=== PATIENT | male | born 1940 | race African-American/Black ===

== ENCOUNTER 2021-04-10 07:01 | Inpatient (IN) | payer OTHER ==
[~2021-04-10] VITALS: Ht 175.3 cm; Wt 85.7 kg
[2021-04-10] VITALS (7 sets, daily range): BP systolic 93–123; BP diastolic 54–77
--- NOTE | ~2021-04-10 | EMS ---
[address] [address] EMS Patient Care Report Name: CHRISTIAN JAMES Room #: 353-P ADM IN M.R.#: [id number] Admission: 04/10/21 Attend Phys: Vitaliy Song MD Discharge: Date of : 40 Report #: [id number] THIS REPORT FOR: //name// Report Transmitted: 04/12/2021 08:21 EMS Care Summary [place], [place]/[facility] Incident [id number] @ 04/10/2021 06:22 Incident Location [address] [place], [place] [id number] Patient CHRISTIAN JAMES Male, 80 Years 1940 Patient Address [address] [place], [place] [phone] Patient History Hypertension (HTN),Prostate Cancer, Patient Allergies No known allergies, Patient Medications Unknown, Chief Complaint COUGH FROM COVID Disposition Transported No Lights/[place] Dispatch Reason Breathing Problem Transported To [facility] Narrative UPON ARRIVAL TO SCENE, PT FOUND UPSTAIRS IN HIS BEDROOM ALERT AND ORIENTED. PT WAS GATHERING HIS BELONGINGS AND PUTTING CLOTHES ON WITHOUT DIFFICULTY, PREPARING FOR TRIP TO ER. PT STATED HE WAS VACCINATED FOR COVID IN NOVEMBER, STARTED HAVING PERSISTENT COUGH A COUPLE DAYS AGO, AND THEN TESTED POSITIVE FOR [address] [address] EMS Patient Care Report Name: CHRISTIAN JAMES JR Room #: 353-P [facility] IN [facility]#: [id number] Admission: 04/10/21 Attend Phys: Vitaliy Song MD Discharge: Date of : 40 Report #: [id number] COVID. PT HAS BEEN AT HOME FOR A FEW DAYS SINCE TESTING POSITIVE, AND STATES HIS COUGH IS GETTING WORSE AND WANTS TO GO TO ER. PT HAD NO COMPLAINTS OF PAIN OR ACHES AND DID NOT FEEL SOB. PT WAS ASSISTED TO STRETCHER WITH BELONGINGS AND TAKEN TO AMBULANCE. VITALS MONITORED EN ROUTE, PT PLACED ON NC DUE TO HYPOXIA BUT STILL STATED HE DID NOT FEEL SOB. UPON ARRIVAL PT TAKEN TO ER AND CARE LEFT WITH STAFF NURSE. Initial Vitals @06:47P: 86,R: 16,BP: 102/67,Pain: 0/10,GCS: 15,CO: 4,SpO2: 93,Revised Trauma: 12, @06:40P: 90,R: 16,BP: 103/63,Pain: 0/10,GCS: 15,Temp: 102.9F,CO: 3,SpO2: 89,Revised Trauma: 12, Assessments @06:29MENTAL:Person Oriented,Time Oriented,Place Oriented,Event Oriented,SKIN:Hot,HEENT:Head/Face: No Abnormalities,Neck/Airway: No Abnormalities,LUNG SOUNDS:General: No Abnormalities,ABDOMEN:General: No Abnormalities,PELVIS//GI:EXTREMITIES:Left Arm: No Abnormalities,Right Arm: No Abnormalities,Left Leg: No Abnormalities,Right Leg: No Abnormalities,PULSE:NEURO:No Abnormalities, Impression COVID-19 - Confirmed by testing Procedures @06:29ALS AssessmentResponse: UnchangedSucceeded@06:41Oxygen FlowRate: 3 Device: Nasal Cannula (NC) Response: ImprovedSucceeded Timeline 06:20,Call Received 06:20,Dispatch Notified 06:22,Dispatched 06:23,En Route 06:27,On Scene 06:29,At Patient 06:29,ALS Assessment,Response: UnchangedSucceeded, 06:39,Depart Scene 06:40,BP: 103/63 M,PULSE: 90,RR: 16 R,SPO2: 89 Ox,ETCO2: ,BG: ,PAIN: 0,GCS: 15, 06:41,Oxygen FlowRate: 3 Device: Nasal Cannula (NC) Response: ImprovedSucceeded, 06:47,BP: 102/67 M,PULSE: 86,RR: 16 R,SPO2: 93 Ox,ETCO2: ,BG: ,PAIN: 0,GCS: 15, 06:57,At Destination 07:10,Call Closed Disclaimer v1.1 Copyright 2020 [employer] This EMS Care Summary contains data elements [place] [address] EMS Patient Care Report Name: CHRISTIAN JAMES Room #: 353-P [facility] IN M.R.#: [id number] Admission: 04/10/21 Attend Phys: Vitaliy oSng MD Discharge: Date of : 40 Report #: [id number] (which may be displayed differently). It is designed to provide pertinent information for the following purposes: continuity of care, clinical quality, and state data reporting. The complete legal record is available to ED staff and administrators of the receiving hospital in [facility]'s Patient Tracker. All data is provided "as is."
--- NOTE | ~2021-04-10 | EMS ---
[address] [address] EMS Patient Care Report Name: CHRISTIAN JAMES Room #: 353-P ADM IN M.R.#: [id number] Admission: 04/10/21 Attend Phys: Vitaliy Song MD Discharge: Date of : 40 Report #: [id number] THIS REPORT FOR: //name// Report Transmitted: 04/12/2021 10:05 EMS Care Summary [place], [place]/[facility] Incident [id number] @ 04/10/2021 06:22 Incident Location [address] [place], [place] [phone] Patient CHRISTIAN JAMES Male, 80 Years 1940 Patient Address [address] [place], [place] [phone] Patient History Hypertension (HTN),Prostate Cancer, Patient Allergies No known allergies, Patient Medications Unknown, Chief Complaint COUGH FROM COVID Disposition Transported No Lights/[place] Dispatch Reason Breathing Problem Transported To [facility] Narrative UPON ARRIVAL TO SCENE, PT FOUND UPSTAIRS IN HIS BEDROOM ALERT AND ORIENTED. PT WAS GATHERING HIS BELONGINGS AND PUTTING CLOTHES ON WITHOUT DIFFICULTY, PREPARING FOR TRIP TO ER. PT STATED HE WAS VACCINATED FOR COVID IN NOVEMBER, STARTED HAVING PERSISTENT COUGH A COUPLE DAYS AGO, AND THEN TESTED POSITIVE FOR [address] [address] EMS Patient Care Report Name: CHRISTIAN JAMES JR Room #: 353-P [facility]#: [id number] Admission: 04/10/21 Attend Phys: Vitaliy Song MD Discharge: Date of : 40 Report #: [id number] COVID. PT HAS BEEN AT HOME FOR A FEW DAYS SINCE TESTING POSITIVE, AND STATES HIS COUGH IS GETTING WORSE AND WANTS TO GO TO ER. PT HAD NO COMPLAINTS OF PAIN OR ACHES AND DID NOT FEEL SOB. PT WAS ASSISTED TO STRETCHER WITH BELONGINGS AND TAKEN TO AMBULANCE. VITALS MONITORED EN ROUTE, PT PLACED ON NC DUE TO HYPOXIA BUT STILL STATED HE DID NOT FEEL SOB. UPON ARRIVAL PT TAKEN TO ER AND CARE LEFT WITH STAFF NURSE. Initial Vitals @06:47P: 86,R: 16,BP: 102/67,Pain: 0/10,GCS: 15,CO: 4,SpO2: 93,Revised Trauma: 12, @06:40P: 90,R: 16,BP: 103/63,Pain: 0/10,GCS: 15,Temp: 102.9F,CO: 3,SpO2: 89,Revised Trauma: 12, Assessments @06:29MENTAL:Person Oriented,Time Oriented,Place Oriented,Event Oriented,SKIN:Hot,HEENT:Head/Face: No Abnormalities,Neck/Airway: No Abnormalities,LUNG SOUNDS:General: No Abnormalities,ABDOMEN:General: No Abnormalities,PELVIS//GI:EXTREMITIES:Left Arm: No Abnormalities,Right Arm: No Abnormalities,Left Leg: No Abnormalities,Right Leg: No Abnormalities,PULSE:NEURO:No Abnormalities, Impression COVID-19 - Confirmed by testing Procedures @06:29ALS AssessmentResponse: UnchangedSucceeded@06:41Oxygen FlowRate: 3 Device: Nasal Cannula (NC) Response: ImprovedSucceeded Timeline 06:20,Call Received 06:20,Dispatch Notified 06:22,Dispatched 06:23,En Route 06:27,On Scene 06:29,At Patient 06:29,ALS Assessment,Response: UnchangedSucceeded, 06:39,Depart Scene 06:40,BP: 103/63 M,PULSE: 90,RR: 16 R,SPO2: 89 Ox,ETCO2: ,BG: ,PAIN: 0,GCS: 15, 06:41,Oxygen FlowRate: 3 Device: Nasal Cannula (NC) Response: ImprovedSucceeded, 06:47,BP: 102/67 M,PULSE: 86,RR: 16 R,SPO2: 93 Ox,ETCO2: ,BG: ,PAIN: 0,GCS: 15, 06:57,At Destination 07:10,Call Closed Disclaimer v1.1 Copyright 2020 [employer] This EMS Care Summary contains data elements [place] [address] EMS Patient Care Report Name: CHRISTIAN JAMES Room #: 353-P [facility] IN M.R.#: [id number] Admission: 04/10/21 Attend Phys: Vitaliy Song MD Discharge: Date of : 40 Report #: [id number] (which may be displayed differently). It is designed to provide pertinent information for the following purposes: continuity of care, clinical quality, and state data reporting. The complete legal record is available to ED staff and administrators of the receiving hospital in [facility]'s Patient Tracker. All data is provided "as is."
--- NOTE | 2021-04-10 07:30 | NUR ---
ED PROVIDER HAD TAKEN PT OFF 3L NC, HOWEVER OXYGEN SATURATION HAD DROPPED BACK IN THE UPPER 80'S ON RA. PT PLACED BACK ON 3L NC AT THIS TIME. ED PROVIDER NOTIFIED
[2021-04-10 07:31] LABS: ABSOLUTE NEUTROPHILS 6.1 thou/uL (1.4-8.2); BASOPHILS 0.8 % (0.0-2.0); HEMATOCRIT 34.7 % (42.0-52.0); HEMOGLOBIN 11.9 gm/dL (14.0-18.0); LYMPHOCYTES 12.6 % (24.0-44.0); MCHC 34.3 g/dL (28.0-37.0); MCV 87.6 fL (80.0-100.0); MONOCYTES 3.7 % (1.0-8.0); PLATELET COUNT 135 thou/uL (150-400); POLYS 82.9 % (36.0-66.0); RBC 3.96 mil/uL (4.50-6.00); RDW 14.6 % (10.5-14.5); WBC 7.4 thou/uL (4.0-11.0)
[2021-04-10 08:11] LABS: CALCIUM 8.2 mg/dL (8.5-10.1); CREATININE 1.5 mg/dL (0.7-1.3); POTASSIUM 3.5 mmol/L (3.5-5.1)
[2021-04-10 08:17] LABS: ALBUMIN 2.8 g/dL (3.4-5.0); TOTAL BILIRUBIN 0.9 mg/dL (0.2-1.0); TOTAL PROTEIN 6.9 g/dL (6.4-8.2)
[2021-04-10] MEDS ORDERED: CASODEX 50 MG T50 MG PO (13:26)
[2021-04-10] MEDS ORDERED: K-DUR 20 MEQ T20 MEQ PO (13:26)
[2021-04-10] MEDS ORDERED: TRIAMTERENE/HCT1 CA1 PO (13:27)
--- NOTE | 2021-04-10 17:05 | NUR ---
ADMISSION NOTE: PT ADMITTED TO 353, ALERT AND ORIENTED X4, FORGETFUL TIMES. DENIES CHEST PAIN, NAUSEA AND VOMITTING. COMPOSITE SCIENCE TEACHER PLACED ON PT, SR. ASSESSMENT AND ADMISSION COMPLETED. OXYGEN TITRATED DOWN TO 1L. UP BATHROOM WITH 1 ASSIST. FALL PRECAUTIONS IN PLACE. MED REC. COMPLETED. PT DAUGHTER CALLED AND UPDATED ABOUT CARE.
[2021-04-11 00:21] VITALS: BP 106/71
[2021-04-11 04:10] VITALS: BP 104/68
[2021-04-11 05:35] LABS: ABSOLUTE NEUTROPHILS 5.7 thou/uL (1.4-8.2); BASOPHILS 0.1 % (0.0-2.0); HEMATOCRIT 31.3 % (42.0-52.0); HEMOGLOBIN 10.9 gm/dL (14.0-18.0); LYMPHOCYTES 10.2 % (24.0-44.0); MCH 30.4 pg (26.0-34.0); MCHC 34.9 g/dL (28.0-37.0); MCV 87.2 fL (80.0-100.0); MONOCYTES 5.6 % (1.0-8.0); PLATELET COUNT 140 thou/uL (150-400); POLYS 84.1 % (36.0-66.0); RBC 3.59 mil/uL (4.50-6.00); RDW 14.5 % (10.5-14.5); WBC 6.8 thou/uL (4.0-11.0)
[2021-04-11 05:42] LABS: PROTIME 10.9 Seconds (10.5-12.1)
[2021-04-11 05:57] LABS: ALBUMIN 2.2 g/dL (3.4-5.0); CALCIUM 7.6 mg/dL (8.5-10.1); POTASSIUM 3.8 mmol/L (3.5-5.1); TOTAL BILIRUBIN 0.5 mg/dL (0.2-1.0)
[2021-04-11 07:47] VITALS: BP 91/56
[2021-04-11 11:18] VITALS: BP 112/74
--- NOTE | 2021-04-11 13:37 | NUR ---
ASSUMED PT CARE THIS AM. PT A&O X4. DENIES ANY CHEST OR OTHER PAIN. PT USES URINAL. ATTEMPTED TO WEAN PT FROM 1L WITH DESAT DURING PHONE CALL, REMAINS ON 1L NC. ENHANCED PRECAUTIONS IN PLACE. FALL PRECAUTIONS IN PLACE. CONTINUE TO MONITOR.
[2021-04-11 16:19] VITALS: BP 110/76
[2021-04-11 19:55] VITALS: BP 127/73
[2021-04-12 03:56] VITALS: BP 99/69
[2021-04-12 07:08] LABS: ABSOLUTE NEUTROPHILS 5.9 thou/uL (1.4-8.2); BASOPHILS 0.1 % (0.0-2.0); HEMATOCRIT 31.7 % (42.0-52.0); HEMOGLOBIN 10.7 gm/dL (14.0-18.0); LYMPHOCYTES 9.9 % (24.0-44.0); MCH 29.8 pg (26.0-34.0); MCHC 33.8 g/dL (28.0-37.0); MONOCYTES 6.8 % (1.0-8.0); PLATELET COUNT 206 thou/uL (150-400); POLYS 83.2 % (36.0-66.0); RDW 14.4 % (10.5-14.5); WBC 7.1 thou/uL (4.0-11.0)
[2021-04-12 07:09] LABS: ALBUMIN 2.1 g/dL (3.4-5.0); CALCIUM 7.6 mg/dL (8.5-10.1); DIRECT BILIRUBIN 0.1 mg/dL (<0.1-0.2); PHOSPHORUS 1.8 mg/dL (2.6-4.7); POTASSIUM 4.1 mmol/L (3.5-5.1); TOTAL BILIRUBIN 0.4 mg/dL (0.2-1.0); TOTAL PROTEIN 5.4 g/dL (6.4-8.2)
--- NOTE | 2021-04-12 07:37 | NUR ---
PT PROGRESSING TOWARDS D/C GOALS, VSS UNLABORED ON 1LNC. LUNG SOUNDS STILL DIMINISHED. TOLERATED IV FLUIDS AND ABX WELL. NO C/O PAIN. NO S/S DISRESS. REINSTRUCTD PT ON FALL PRECAUTIONS. PT IS FORGETFULAND HAS TO BE REMIDER TO CALL FIRST BEFORE GETTING OOB. BED ALARM IS ON. CALL LIGHT IN REACH ALL NIGHT.
[2021-04-12 07:39] VITALS: BP 129/77
[2021-04-12 11:37] VITALS: BP 109/73
[2021-04-12 15:31] VITALS: BP 108/75
--- NOTE | 2021-04-12 15:57 | NUR ---
INITIAL ASSESSMENT: Received consult. PEARL reviewed chart and spoke with nursing and attending physician. Pt was admitted from home due to COVID pneumonia. Pt placed in Enhanced Isolation. Pt is afebrile and on 1L of O2. Pt is on IV abx and IV steroids. Pt has been started on Remdesivir and Ivermectin. Per chart, pt had Maurizio and Maurizio COVID vaccine. PERAL placed call to pt's room. No answer. Per chart, pt is alert/orientated x 4. Pt lives at home with family. PT/OT ordered to evaluate pt for discharge needs. PEARL will continue to contact pt and is following to assist as needed with discharge planning.
[2021-04-12 20:13] VITALS: BP 132/84
[2021-04-12 21:05] LABS: HIV ANTIBODY Non Reactive (Non Reactive)
--- NOTE | 2021-04-12 21:54 | NUR ---
PT ALERT AND ORIENTED X4 WITH PERIODS OF CONFUSION AND FORGETFULNESS. BED ALARM IS ON. REINSTRUCTED PT ON FALL PRECAUTIONS. VSS. AFEBRILE. UNLABORED. NO S/S DISTRESS. NO C/O PAIN. PT IS RESTING QUIETLY WATCHING TV. CALL LIGHT IN REACH
[2021-04-13 03:39] VITALS: BP 148/78
--- NOTE | 2021-04-13 05:33 | NUR ---
PT PROGRESSING TOWARDS D/C GOALS. VSS AFEBRILE. PT FORGETFUL REGARDING WAITING FOR STAFF BEFORE GETTING OOB. HE VOIDED ON THE FLOOR. REINSRUCTED ON FALL PRECAUTIONS. BED ALARM IS ON. LUNG SOUND SLIGHTLY DIMINISHED BUT UN LABORED ON 1LNC. NO COUGH NOTED. INSTRUCTED ON NEED FOR SPUTUM CX.
[2021-04-13 07:31] VITALS: BP 143/80
[2021-04-13 08:00] LABS: ALBUMIN 2.2 g/dL (3.4-5.0); CALCIUM 7.6 mg/dL (8.5-10.1); CREATININE 0.9 mg/dL (0.7-1.3); DIRECT BILIRUBIN 0.1 mg/dL (<0.1-0.2); PHOSPHORUS 1.7 mg/dL (2.5-4.9); POTASSIUM 3.6 mmol/L (3.5-5.1); TOTAL BILIRUBIN 0.4 mg/dL (0.2-1.0); TOTAL PROTEIN 5.5 g/dL (6.4-8.2)
[2021-04-13 11:26] VITALS: BP 117/75
[2021-04-13 15:17] VITALS: BP 128/84
[2021-04-13 21:03] VITALS: BP 151/90
--- NOTE | 2021-04-14 01:25 | NUR ---
PROGRESS PT A/O X4 BUT CONFUSED AT TIMES. LUNGS CLEAR BUT DIMINISHED. O2 SATS 93 TO 95% ON ROOM AIR SPOT CHECKED WHILE SLEEPING AND MAINTAINING 93% ON ROOM AIR, DENIES SOB. ABDOMEN SOFT WITH ACTIVE BS. VOIDING LARGE AMOUNTS OF CLEAR LIGHT YELLOW URINE PER URINAL. DENIES PAIN. AMBULATING IN ROOM WITH SBA, FALL PRECAUTIONS IN PLACE BED AND CHAIR ALARMS IN USE AT ALL TIMES.
[2021-04-14 04:38] VITALS: BP 122/78
--- NOTE | 2021-04-14 05:42 | NUR ---
PT PLACED ON 3 LITERS O2 AT 5AM FOR SATS IN MID 80'S, PT STOOD TO VOID AND SATS DROPPED AND DIDN'T REBOUND UNTIL O2 REPLACED.. SPOT CHECKED WHILE SLEEPING AND SATS AT 92 TO 93% ON ROOM AIR.
[2021-04-14 07:18] LABS: ALBUMIN 2.3 g/dL (3.4-5.0); DIRECT BILIRUBIN 0.1 mg/dL (<0.1-0.2); PHOSPHORUS 2.1 mg/dL (2.6-4.7); POTASSIUM 3.1 mmol/L (3.5-5.1); TOTAL BILIRUBIN 0.5 mg/dL (0.2-1.0); TOTAL PROTEIN 5.6 g/dL (6.4-8.2)
[2021-04-14 08:13] VITALS: BP 145/80
[2021-04-14 11:47] VITALS: BP 129/85
--- NOTE | 2021-04-14 15:34 | NUR ---
PEARL reviewed chart and spoke with nursing and attending physician. Pt remains in Enhanced Isolation due to COVID. Pt is afebrile and on 1L of O2. Pt is on IV steroids and completing course of Remdesivir. Discharge home is anticipated for tomorrow. Will need a rest/exercise oximetry to determine if pt needs home O2. HH recommended. PEARL placed call to pt's room. No answer. PEARL spoke with pt's , Chanelle, via phone. Introduced role of PAERL. Prior to admission, pt was independent with ADLs. No use of DME. No hx of HH services or post-acute placement. Pt's PCP is Dr. Dorian Atkinson. SW discussed HH agencies/DME providers. No preference voiced. Plan is for pt to discharge home with HH when medically stable. PEARL is following to assist as needed with discharge planning.
[2021-04-14 15:57] VITALS: BP 151/85
[2021-04-14 20:00] VITALS: BP 136/76
[2021-04-15] VITALS (7 sets, daily range): BP systolic 121–150; BP diastolic 69–98
[2021-04-15 01:06] LABS: HAV IgM AB (ANTI-HAV IgM) Negative (Negative); HEPATITIS B SURFACE AG Negative (Negative); HEPATITIS C VIRUS AB <0.1 (0.0-0.9)
--- NOTE | 2021-04-15 04:42 | NUR ---
PROGRESS PT A/O X4 A LITTLE FORGETFUL AT TIMES. LUNGS CLEAR RESPIRATIONS QUIET AND EASY, O2 SATS AT 93 AND ABOVE ON ROOM AIR. VOIDING QS IN URINAL ACCUCHECKS AND SSI CONTINUE NONE REQUIRED THIS EVENING. TELEMETRY INTACT READING SR/SB WITH RATES IN THE UPPER 40'S. PT HOPES TO DC HOME TODAY.
[2021-04-15 08:42] LABS: T-SPOT.TB Negative
[2021-04-15] MEDS ORDERED: CEFDINIR300 MG PO (13:06)
[2021-04-15] MEDS ORDERED: ACEROLA C500 MG PO (13:06)
[2021-04-15] MEDS ORDERED: VITAMIN B-1100 M2 PO (13:06)
[2021-04-15] MEDS ORDERED: ZINC SULFATE50 MG PO (13:06)
[2021-04-15] MEDS ORDERED: PEPCID20 MG PO (13:06)
[2021-04-15] MEDS ORDERED: PREDNISONE 20 M20 MG PO (13:06)
[2021-04-15] MEDS ORDERED: ACETAMINOPHEN325 M1 PO (13:06)
[2021-04-15] MEDS ORDERED: ELIQUIS2.5 MG PO (13:07)
[2021-04-15] MEDS ORDERED: LISINOPRIL5 MG PO (13:11)
--- NOTE | 2021-04-15 15:28 | NUR ---
DISCHARGE NOTE: SW reviewed chart and spoke with nursing and attending physician. Pt remains in Enhanced Isolation due to COVID. Pt had last dose of Remdesivir this morning and is medically stable for discharge home today with HH services. Rest/exercise oximetry completed. Pt does not qualify for home O2. [facility] liaison aware of pt's discharge. SW placed call to pt's dtr, Julieth, who will provide transportation around [phone] today. Contact info for HH placed in pt's discharge summary. No additional SW needs identified at this time, but is available to assist should needs arise.
--- NOTE | 2021-04-15 17:27 | NUR ---
PT DISCHARGED HOME WITH HH...HIS DAUGHTER WAS GIVEN INFO AND HE IS TO [place] TIL 04/28/21...COVID INFO SHEETS GIVEN...
== END 2021-04-15 17:22 | disposition home health service (06) | DRG 177 ==
LOC: ER 07:01 → 3W 08:52 → EROBS 08:52 → 3W 09:27
PROVIDERS: Emergency Medicine; Specialist; ADMIT Hospitalist; ATTEND Hospitalist
PROC: XW033E5 Introduction of Remdesivir Anti-infective into Peripheral Vein, Percutaneous Approach, New Technology Group 5 (ICD-10-PCS; principal; 2021-04-10)
DX: U07.1 COVID-19 (principal); J12.82 Pneumonia due to coronavirus disease 2019; J96.00 Acute respiratory failure, unspecified whether with hypoxia or hypercapnia; E87.1 Hypo-osmolality and hyponatremia; N17.9 Acute kidney failure, unspecified; E83.39 Other disorders of phosphorus metabolism; E87.6 Hypokalemia; I10 Essential (primary) hypertension; Z85.46 Personal history of malignant neoplasm of prostate; Z79.899 Other long term (current) drug therapy
CPT/HCPCS: 10879